=== PATIENT | female | born 1995 | race Caucasian/White ===

== ENCOUNTER 2016-10-18 17:44 | Emergency (ER) | payer OTHER ==
[~2016-10-18] VITALS: Ht 165.1 cm; Wt 68.0 kg
[2016-10-18] MEDS ORDERED: ARIP5TAB8 PO (17:50)
[2016-10-18] MEDS ORDERED: SODIUM CHLORIDE 0.9% 1,000 ML IV ONE (18:58)
[2016-10-18] MEDS ORDERED: LORAZEPAM 2MG/ML CPJ IV STA (18:58)
[2016-10-18 19:27] LABS: BASOPHILS % 0.5 % (0.0-2.0); EOSINOPHILS % 2.3 % (0.0-5.0); HEMATOCRIT. 35.9 % (36.0-48.0); HEMOGLOBIN. 12.4 g/dL (12.0-16.0); LYMPHOCYTES % 24.1 % (20.0-50.0); MEAN CORPUSCULAR HEMOGLOBIN 30.4 pg (28.0-32.0); MEAN CORPUSCULAR HGB CONC 34.4 g/dL (31.0-37.0); MEAN CORPUSCULAR VOLUME 88.5 fL (81.0-99.0); MEAN PLATELET VOLUME 7.6 fl (7.4-10.4); MONOCYTES % 5.7 % (2.0-8.0); NEUTROPHILS % 67.4 % (40.0-76.0); PLATELET 270 x1000/uL (130-400); RED BLOOD CELL COUNT 4.06 mill/uL (4.2-5.4); RED CELL DISTRIBUTION WIDTH 13.6 % (11.6-14.6); WHITE BLOOD COUNT 10.4 x1000/uL (4.5-11.0)
[2016-10-18 19:36] LABS: CHLORIDE 110 mEq/L (98-107); INDEX HEMOLYSI 1 (1-3); INDEX ICTERIC 1 (1-4); INDEX LIPEMIC 1 (1-3)
[2016-10-18 19:51] LABS: HCG SCREEN NEGATIVE
[2016-10-18 19:52] LABS: ACETAMINOPHEN < 2 ug/mL (10-30); ALANINE AMINOTRANSFERASE 22 IU/L (13-61); ALBUMIN 3.5 g/dL (3.4-5.0); ANION GAP 10; CALCIUM 7.9 mg/dL (8.5-10.1); CARBON DIOXIDE 27 mEq/L (21-32); ETHANOL BLOOD < 10 mg/dL; UREA NITROGEN BLOOD 15 mg/dL (7-21); eGFR > 60 mL/min (>60)
[2016-10-19 02:40] LABS: *AMPHETAMINES SCREEN URINE NEGATIVE (NEGATIVE); *BARBITURATES SCREEN URINE NEGATIVE (NEGATIVE); *BENZODIAZEPINES SCREEN URINE NEGATIVE (NEGATIVE); *COCAINE SCREEN URINE NEGATIVE (NEGATIVE); CANNABINOID URINE SCREEN NEGATIVE (NEGATIVE); ECSTASY MDMA SCREEN URINE NEGATIVE (NEGATIVE); METHADONE URINE SCREEN NEGATIVE (NEGATIVE); OPIATES URINE SCREEN NEGATIVE (NEGATIVE); PHENCYCLIDINE URINE SCREEN NEGATIVE (NEGATIVE)
[2016-10-19 12:49] VITALS: BP 108/65
== END 2016-10-19 13:29 | disposition home or self-care (01) ==
LOC: ER 17:44
DX: F29 Unspecified psychosis not due to a substance or known physiological condition (principal); E86.0 Dehydration; F20.9 Schizophrenia, unspecified
CPT/HCPCS: 36415; 80053; 80305; 80307; 80329; 84443; 84703; 85025; 93005; 96361; 96374; 99284; 99285; G0482; J2060; J7030

== ENCOUNTER 2017-02-09 05:43 | Emergency (ER) | payer OTHER, MEDICAID ==
[~2017-02-09] VITALS: Ht 154.9 cm; Wt 68.0 kg
[~2017-02-09 05:43] MED LIST: ABIL5 PO
[2017-02-09 07:44] LABS: CLARITY URINE CLEAR (CLEAR); COLOR URINE YELLOW (YELLOW); GLUCOSE URINE NEGATIVE (NEGATIVE); KETONES URINE NEGATIVE (NEGATIVE); LEUKOCYTE ESTERASE URINE 3+ (NEGATIVE); NITRITE URINE NEGATIVE (NEGATIVE); OCCULT BLOOD URINE NEGATIVE (NEGATIVE); PH URINE 7.5 (4.5-8.0); PROTEIN URINE NEGATIVE (NEGATIVE); SPECIFIC GRAVITY URINE 1.013 (1.005-1.030); UROBILINOGEN URINE 0.2 E.U./dL (0.2-1.0)
[2017-02-09 07:46] LABS: BASOPHILS % 0.8 % (0.0-2.0); EOSINOPHILS % 1.2 % (0.0-5.0); HEMATOCRIT. 38.5 % (36.0-48.0); HEMOGLOBIN. 13.2 g/dL (12.0-16.0); MEAN CORPUSCULAR HEMOGLOBIN 30.1 pg (28.0-32.0); MEAN CORPUSCULAR VOLUME 87.9 fL (81.0-99.0); MEAN PLATELET VOLUME 7.4 fl (7.4-10.4); MONOCYTES % 4.4 % (2.0-8.0); NEUTROPHILS % 66.6 % (40.0-76.0); PLATELET 339 x1000/uL (130-400); RED BLOOD CELL COUNT 4.39 mill/uL (4.2-5.4); RED CELL DISTRIBUTION WIDTH 13.9 % (11.6-14.6)
[2017-02-09 08:02] LABS: CARBON DIOXIDE 24 mEq/L (21-32); CHLORIDE 107 mEq/L (98-107); ETHANOL BLOOD < 10 mg/dL
[2017-02-09 08:14] LABS: *AMPHETAMINES SCREEN URINE NEGATIVE (NEGATIVE); *BARBITURATES SCREEN URINE NEGATIVE (NEGATIVE); *BENZODIAZEPINES SCREEN URINE NEGATIVE (NEGATIVE); *COCAINE SCREEN URINE NEGATIVE (NEGATIVE); CANNABINOID URINE SCREEN NEGATIVE (NEGATIVE); METHADONE URINE SCREEN NEGATIVE (NEGATIVE); OPIATES URINE SCREEN NEGATIVE (NEGATIVE); PHENCYCLIDINE URINE SCREEN NEGATIVE (NEGATIVE)
[2017-02-09 08:15] LABS: HCG SCREEN NEGATIVE
[2017-02-09 10:17] VITALS: BP 97/61
== END 2017-02-09 11:56 | disposition home or self-care (01) ==
LOC: ER 05:43
DX: F20.9 Schizophrenia, unspecified (principal); N39.0 Urinary tract infection, site not specified; R03.0 Elevated blood-pressure reading, without diagnosis of hypertension
CPT/HCPCS: 36415; 80053; 80305; 80307; 80329; 81001; 84703; 85025; 99284; G0482

== ENCOUNTER 2017-08-06 23:25 | Emergency (ER) | payer OTHER, MEDICAID ==
[~2017-08-06] VITALS: Ht 157.5 cm; Wt 72.0 kg
[2017-08-07] MEDS ORDERED: OLANZAPINE 10 MG/VIAL IM ONE ×4 (02:45→22:45)
[2017-08-07 03:18] LABS: EOSINOPHILS % 0.6 % (0.0-5.0); HEMATOCRIT. 39.8 % (36.0-48.0); HEMOGLOBIN. 13.3 g/dL (12.0-16.0); LYMPHOCYTES % 32.2 % (20.0-50.0); MEAN CORPUSCULAR HEMOGLOBIN 29.5 pg (28.0-32.0); MEAN CORPUSCULAR VOLUME 88.3 fL (81.0-99.0); MONOCYTES % 5.9 % (2.0-8.0); NEUTROPHILS % 60.3 % (40.0-76.0); PLATELET 343 x1000/uL (130-400); RED BLOOD CELL COUNT 4.51 mill/uL (4.2-5.4); RED CELL DISTRIBUTION WIDTH 14.1 % (11.6-14.6)
[2017-08-07 03:27] LABS: PROTHROMBIN TIME 10.7 sec (9.4-11.6)
[2017-08-07 03:28] LABS: CHLORIDE 105 mEq/L (98-107)
[2017-08-07 03:30] LABS: HCG SCREEN NEGATIVE
[2017-08-07] MEDS ORDERED: LORAZEPAM 2MG/ML CPJ IM ONE ×2 (08:30→20:00)
[2017-08-07 10:15] LABS: KETONES URINE NEGATIVE (NEGATIVE); LEUKOCYTE ESTERASE URINE NEGATIVE (NEGATIVE); NITRITE URINE NEGATIVE (NEGATIVE); OCCULT BLOOD URINE NEGATIVE (NEGATIVE); PH URINE 5.5 (4.5-8.0); PROTEIN URINE TRACE (NEGATIVE); SPECIFIC GRAVITY URINE 1.028 (1.005-1.030); UROBILINOGEN URINE 0.2 E.U./dL (0.2-1.0)
[2017-08-07 10:18] LABS: CLARITY URINE CLEAR (CLEAR); COLOR URINE YELLOW (YELLOW)
[2017-08-07] MEDS ORDERED: STERILE WATER FOR INJECTION 10ML VIAL ONE ×2 (12:40→13:54)
[2017-08-07 13:45] LABS: *AMPHETAMINES SCREEN URINE NEGATIVE (NEGATIVE); *BARBITURATES SCREEN URINE NEGATIVE (NEGATIVE); *BENZODIAZEPINES SCREEN URINE NEGATIVE (NEGATIVE); *COCAINE SCREEN URINE NEGATIVE (NEGATIVE); CANNABINOID URINE SCREEN NEGATIVE (NEGATIVE); METHADONE URINE SCREEN NEGATIVE (NEGATIVE); OPIATES URINE SCREEN NEGATIVE (NEGATIVE); PHENCYCLIDINE URINE SCREEN NEGATIVE (NEGATIVE)
[2017-08-07] MEDS ORDERED: MIDAZOLAM HCL 2 MG/2 ML VIAL IM ONE (14:00)
[2017-08-08] MEDS ORDERED: ZIPRASIDONE MESYLATE 20MG/VIAL IM ONE ×3 (02:15→03:30)
[2017-08-08] MEDS ORDERED: LORAZEPAM 2MG/ML CPJ IV STA (03:24)
[2017-08-08] MEDS ORDERED: HALOPERIDOL LACTATE 5MG/ML VIAL IM STA (03:24)
[2017-08-08] MEDS ORDERED: OLANZAPINE 10 MG/VIAL IM STA (03:24)
[2017-08-08 04:11] VITALS: BP 133/76
== END 2017-08-08 05:03 ==
LOC: ER 23:25
DX: F20.9 Schizophrenia, unspecified (principal)
CPT/HCPCS: 36415; 80053; 80305; 80307; 80329; 81003; 84703; 85025; 85610; 96372; 96374; 99285; A4216; G0482; J1630; J2060; J2250; J3486; J3490; 99284